=== PATIENT | female | born 1990 | race Caucasian/White ===

== ENCOUNTER 2017-09-29 15:55 | Inpatient (IN) ==
[2017-09-29] MEDS ORDERED: MAG-AL + SIM ORAL LIQUID 30ml PO PRN (16:18)
[2017-09-29] MEDS ORDERED: LR 1,000 ML IV PRN (16:18)
[2017-09-29] MEDS ORDERED: SALINE FLUSH 10ml SYRINGE IV PRN (16:18)
[2017-09-29] MEDS ORDERED: CALCIUM CARBONATE Chewable 500mg TABLET PO PRN (16:18)
[2017-09-29] MEDS ORDERED: LIDOCAINE 1% (10mg/ml) 2mL INJ PF SDV ID PRN (16:18)
[2017-09-29] MEDS ORDERED: ACETAMINOPHEN 500 MG TABLET PO PRN (16:18)
[2017-09-29] MEDS ORDERED: ZOLPIDEM 5 MG TABLET PO PRN (16:18)
[2017-09-29] MEDS ORDERED: METHYLERGONOVINE 0.2 MG/ML INJECTION IM PRN (16:18)
[2017-09-29] MEDS ORDERED: CARBOPROST 250 MCG/ML INJECTION IM PRN (16:18)
[2017-09-29 17:50] VITALS: BMI 45.7
[2017-09-29] MEDS: HYDROCODONE/APAP 5mg/325mg TABLET PO PRN ×2 (21:18→22:47)
[2017-09-30] MEDS ORDERED: OXYTOCIN DRIP 30 UNIT/500 ML ML IV PRN (05:00)
[2017-09-30] MEDS: D5LR 1,000 ML IV PRN ×2 (05:00→15:00)
[2017-09-30] MEDS ORDERED: BUTORPHANOL 2 MG/ML INJECTION IVP PRN (10:53)
[2017-09-30] MEDS ORDERED: ROPIVACAINE 1% 10MG/ML INJ 200 MG, SUFentanil 50 MCG in NS 100 ML EPI PRN (14:34)
[2017-09-30] MEDS ORDERED: ONDANSETRON 4 MG/2 ML INJECTION IVP PRN (14:34)
[2017-09-30] MEDS ORDERED: DiphenhydrAMINE 50 MG/ML INJECTION IVP PRN (14:34)
[2017-09-30] MEDS ORDERED: NALOXONE 0.4 MG/ML INJECTION IVP PRN (14:34)
--- NOTE | 2017-09-30 14:34 | Anesthesia Preoperative Report ---
Anesthesia Epidural/Spinal Rec - Date and Time Date: 09/30/17 Procedure: Labor Epidural Plan: Epidural - Vital Signs /Para: P:0 - Medictaions & Allergies Inpatient Medications: Current Medications Acetaminophen (Tylenol) 500 - 1,000 mg PO Q4H PRN PRN Reason: Pain Hydrocodone Bitart/Acetaminophen ([place] 5/325) 1 - 2 tab PO Q4H PRN PRN Reason: Pain Last Admin: 09/29/17 22:47 Dose: 1 tab Al Hydroxide/Mg Hydroxide (Maalox Plus) 30 ml PO Q3H PRN PRN Reason: Indigestion Butorphanol Tartrate (Stadol Inj) 1 mg IVP Q1-2HR PRN Last Admin: 09/30/17 10:58 Dose: 1 mg Calcium Carbonate (Tums) 500 - 1,000 mg PO Q2H PRN PRN Reason: Indigestion Carboprost Tromethamine (Hemabate) 250 mcg IM O PRN PRN Reason: .Downtime Lactated Ringer's (Lactated Ringers) 1,000 mls @ 999 mls/hr IV .Q1H1M PRN Last Admin: 09/30/17 05:00 Dose: 999 mls/hr Dextrose/Lactated Ringer's (Dextrose 5%-Lactated Ringers) 1,000 mls @ 125 mls/ hr IV .Q8H PRN PRN Reason: Labor Last Admin: 09/30/17 05:00 Dose: 125 mls/hr Oxytocin (Pitocin Drip) 30 unit in 500 mls @ 2 mls/hr IV .Q24H PRN; Protocol PRN Reason: Induction/Augmentation Last Admin: 09/30/17 05:00 Dose: 2 mls/hr Lidocaine HCl (Xylocaine-Mpf 1% Vial) 0.2 mg ID O PRN PRN Reason: IV Start Methylergonovine Maleate (Methergine) 0.2 mg IM O PRN Misoprostol (Cytotec) 800 mcg [place] ONCE PRN Sodium Chloride (Iv Flush) 10 - 80 ml IV PRN PRN PRN Reason: Flushing Zolpidem Tartrate (Ambien) 5 mg PO O PRN PRN Reason: Insomnia Last Admin: 09/29/17 22:47 Dose: 5 mg Allergies/Adverse Reactions: Allergies Allergy/AdvReac Type Severity Reaction Status Date / Time No Known Allergies Allergy Verified 09/09/17 18:09 - Home Medications Home Medications: Home Medications Medication Instructions Recorded Confirmed Type Ferrous Sulfate 325 mg PO BID 09/09/17 09/29/17 History Omeprazole 1 PO DAILY 09/09/17 History Vitamins 1 PO DAILY 09/09/17 History - Medical History Respiratory: Reports: Bronchitis (chronic when younger) Gastrointestional: Reports: Gastroesophageal Reflux Disease (takes meds) Neuro/Musculoskeletal: Reports: Depression Other History: Reports: Now - Surgical History HEENT Surgeries: Reports: Tonsillectomy (3rd grade) Anesthesia Reactions: None Hx Family Anesthesia Reaction: No History of Motion Sickness: No - Social History Smoking Status: Former smoker Second Hand Exposure: No Substance Use Type: does not use Alcohol Intake Frequency: does not drink Last drink: just SODA MAKER Hx Chewing Tobacco Use: No - Pertinent Findings Lab Data: CBC and BMP 09/29/17 16:44 09/29/17 16:31 BMP 09/29/17 16:31 Sodium 140 Potassium 4.2 Chloride 109 H Carbon Dioxide 20 L BUN 10.0 Creatinine 0.6 L Glucose 70 Calcium 8.8 Liver Function 09/29/17 Range/Units 16:31 Total Bilirubin 0.60 (0.20-1.30) MG/DL AST 15 (14-36) U/L ALT 10 (1-35) U/L Alkaline Phosphatase 179 H (38-126) U/L Albumin 3.6 (3.5-5.0) g/dL EKG Rhythm: Normal Sinus Rhythm - Physical Exam Respiratory Exam: lungs clear Cardiovascular Exam: regular rate and rhythm, no murmur - Airway Assessment Mallampati Score: II Neck Extension: good Overall Assessment: no airway concerns - ASA ASA Score: 2 - Discussion Discussion: Discussed risks/options/alternatives of anesthesia and questions answered. Patient consents. Nursing pain assessment noted. Anesthesia Discussion: spouse Attestation Statement: Prior to the delivery of any anesthetic medication, I examined the patient, developed the plan, obtained the patient's consent and discussed the risk and benefits of the procedure with the patient/guardian.
[2017-09-30] MEDS ORDERED: CITRIC ACID/SODIUM CITRATE 30ml PO ONE (18:32)
[2017-09-30] MEDS ORDERED: CEFAZOLIN 1 G INJECTION IVP ONE (18:32)
[2017-09-30] MEDS ORDERED: AZITHROMYCIN IV 500 MG in NS 250ml 250 ML IV ONE (18:32)
[2017-09-30] MEDS ORDERED: FAMOTIDINE PB 20 MG/50 ML BAG IV ONE (18:32)
[2017-09-30] MEDS ORDERED: CEFAZOLIN PREMIX (MC ONLY) 2 GM/50 ML BAG IV ONE (18:32)
[2017-09-30] MEDS ORDERED: NOZIN NASAL SWAB NAS ONE ×2 (18:35→18:37)
[2017-09-30] MEDS ORDERED: LIDOCAINE 2%/EPI 1:200,000 20ml SDV PF ONE (18:37)
[2017-09-30] MEDS ORDERED: SODIUM BICARBONATE 8.4% (50mEq/50ml) VIAL IV ONE (18:37)
[2017-09-30] MEDS ORDERED: OXYTOCIN BOLUS BAG 30 UNIT/500 ML ML IV SCH (19:06)
[2017-09-30] MEDS ORDERED: MORPHINE SULFATE PF 5mg/10ml INJ (Duramorph) ONE (19:27)
[2017-09-30] MEDS ORDERED: MEPERIDINE 100 MG/ML INJECTION ONE (19:31)
[2017-09-30] MEDS ORDERED: SALINE FLUSH 10ml SYRINGE ONE (19:31)
[2017-09-30] MEDS ORDERED: NALBUPHINE 10 MG/ML INJECTION IVP PRN (19:37)
[2017-09-30] MEDS ORDERED: NALOXONE 2 MG/2 ML INJECTION PFS IVP PRN (19:37)
[2017-09-30] MEDS ORDERED: METOCLOPRAMIDE 10mg/2ml INJECTION IVP PRN (19:37)
[2017-09-30] MEDS ORDERED: DiphenhydrAMINE 50 MG/ML INJECTION ONE (19:37)
[2017-09-30] MEDS ORDERED: CALCIUM CARBONATE Chewable 500mg TABLET PO PRN (20:24)
[2017-09-30] MEDS ORDERED: DiphenhydrAMINE 25 MG CAPSULE PO PRN (20:24)
[2017-09-30] MEDS ORDERED: D5LR 1,000 ML IV SCH (20:24)
[2017-09-30] MEDS ORDERED: HYDROCORTISONE 2.5% CREAM 30gm RECTALLY PRN (20:24)
[2017-09-30] MEDS ORDERED: OXYTOCIN DRIP 30 UNIT/500 ML ML IV SCH (20:24)
[2017-09-30] MEDS ORDERED: SIMETHICONE 80 MG CHEWABLE TABLET PO PRN (20:24)
[2017-09-30] MEDS ORDERED: ACETAMINOPHEN 500 MG TABLET PO PRN (20:24)
--- NOTE | 2017-09-30 20:30 | Anesthesia Postoperative Note ---
- Date and Time Date: 09/30/17 Time: 20:29 - Status Patient Participated in Evaluation: Patient Participated in Person Vital Signs: Pulse Oximetry 97 09/30/17 18:47 Respiratory Function: Airway Patent, Regular Respirations Cardiovascular Function: Regular Pulse EKG: Sinus Rhythm Mental Status: Alert and Oriented Pain Intensity: 0 (spinal intact) Hydration: IV Infusing Complications During Recover: None Apparent - Follow-Up Instructions Instructions: Per Surgeon
[2017-09-30] MEDS ORDERED: NOZIN NASAL SWAB NAS SCH (22:00)
[2017-09-30] MEDS: MetroNIDAZOLE 500 MG TABLET PO SCH (22:29)
[2017-09-30] MEDS: IBUPROFEN 800 MG TABLET PO PRN (22:30)
[2017-09-30] MEDS: SIMETHICONE 80 MG CHEWABLE TABLET PO SCH (22:32)
--- NOTE | 2017-10-01 08:12 | OB/GYN Progress Note ---
OB-PP Progress Note - General POD:: POD1 - Subjective Date: 10/01/17 Lochia: Moderate Pain: controlled Voiding: benito still in place (clear urine) Nausea or Vomiting Present: No - Objective Vital Signs: Last Vital Signs Temp 98 F 10/01/17 04:45 Pulse 82 10/01/17 04:45 Resp 16 10/01/17 04:45 BP 125/69 10/01/17 04:45 Pulse Ox 98 10/01/17 04:45 Urine Output: good General: alert and oriented Abdomen: fundus firm Incision: dressed (wound vac in place) Extremities: non-tender Laboratory: Laboratory Results - last 24 hr 10/01/17 07:35 WBC 15.2 H RBC 3.95 L Hgb 9.4 L D Hct 30.0 L D MCV 75.9 L MCH 23.8 L MCHC 31.3 RDW Std Deviation 42.4 Plt Count 197 MPV 11.5 - Assessment Assessment: Primary C/S - Plan Plan: routine care
[2017-10-01] MEDS: MetroNIDAZOLE 500 MG TABLET PO SCH ×2 (08:47→15:40)
[2017-10-01] MEDS: DOCUSATE CALCIUM 240 MG CAPSULE PO SCH (08:47)
[2017-10-01] MEDS: SIMETHICONE 80 MG CHEWABLE TABLET PO SCH ×4 (08:48→20:11)
--- NOTE | 2017-10-01 10:20 | Operative Note ---
DATE OF PROCEDURE 09/30/2017 PREOPERATIVE DIAGNOSIS 1. 26-year-old at 39 weeks 5 days gestational age. 2. Arrest of descent. 3. Late decelerations with Pitocin. POSTOPERATIVE DIAGNOSIS 1. 26-year-old at 39 weeks 5 days gestational age. 2. Arrest of descent. 3. Late decelerations with Pitocin. PROCEDURE Primary low transverse section. SURGEON Dr. Dania Brock ROOF BOLTER Dr. Jesusita Walker ANESTHESIA Epidural by Ramon Sanon CRNA COMPLICATIONS None. EBL 800 ml FINDINGS Viable male infant, cephalic OP position, clear fluids, Apgars 8/9, weight 3450 g, name "Isaias." Normal-appearing uterus, tubes and ovaries. INDICATIONS The patient was brought in on the evening of 09/29/2017 for Forbes bulb cervical ripening due to increased edema. The next morning she was started on Pitocin. After her Forbes bulb was expelled, her membranes were ruptured artificially returning clear fluids. She received an epidural. Her Pitocin had to be turned down and then off due to late decelerations at one point in time. An IUPC was placed to help titrate Pitocin. She started having late decelerations again with only 6 milliunits of Pitocin. Her cervix was still only 3.5 cm and - 2 station. Since she was remote from vaginal delivery and having late decelerations with Pitocin, she was consented for a . DESCRIPTION OF PROCEDURE The patient was taken to the operating room where her epidural was brought up to adequate surgical levels. She already had a Forbes catheter in place. A Pfannenstiel skin incision was made just a little bit above her pannus to stay out of that crease. This was carried down to the fascia. The fascia was incised in the midline and extended laterally with a Macias scissors. The fascia was elevated and the underlying rectus muscles were dissected off. The peritoneum was entered bluntly and extended superiorly and inferiorly with good visualization of the bladder. The bladder blade was inserted. A bladder flap was created sharply and the bladder blade was reinserted. The lower uterine segment was incised in a transverse fashion layer by layer with a scalpel and bluntly extended. The infant's head was delivered atraumatically. The nose and mouth were suctioned. A nuchal cord x 1 was reduced. The infant was handed to Dr. Cain who was asked to attend due to the late decelerations. The placenta delivered spontaneously. The uterus was exteriorized and cleared of all clots and debris. The uterine incision was closed with running-locked O Monocryl. A [id number] was placed for hemostasis as well as using the cautery. The uterus was returned to the abdomen. The gutters were cleared of all clots and debris. The uterine incision was inspected one final time and still noted to be hemostatic. The peritoneum was closed with running 2-0 Vicryl. Hemostasis was obtained in the rectus muscles with the cautery. The fascia was closed with running 0 Vicryl. Hemostasis was obtained in subcutaneous tissue with the cautery. Miller's fascia was closed with running 2-0 chromic. The skin was closed with 4-0 Vicryl in a subcuticular manner. A Prevena wound vac was placed. Sponge, sharp and instrument counts were correct. The patient tolerated the procedure well and was taken to the recovery room in good condition. CORBIN
[2017-10-01] MEDS: HYDROCODONE/APAP 5mg/325mg TABLET PO PRN ×4 (11:09→21:59)
[2017-10-01] MEDS: IBUPROFEN 800 MG TABLET PO PRN (15:40)
[2017-10-02] MEDS: HYDROCODONE/APAP 5mg/325mg TABLET PO PRN ×5 (00:29→15:59)
[2017-10-02] MEDS: MetroNIDAZOLE 500 MG TABLET PO SCH ×2 (00:29→08:50)
[2017-10-02] MEDS: IBUPROFEN 800 MG TABLET PO PRN ×3 (00:29→15:58)
--- NOTE | 2017-10-02 08:31 | OB/GYN Progress Note ---
<Donita Barth - Last Filed: 10/02/17 08:27> OB-PP Progress Note - General PPD2 POD:: POD2 Maternal Group B Strep: Negative Maternal blood type: O+ Maternal Rubella Status: Immune - Subjective Date: 10/02/17 Lochia: Moderate Pain: controlled Voiding: voiding Nausea or Vomiting Present: No - Objective Vital Signs: Last Vital Signs Temp 97.8 F 10/02/17 04:00 Pulse 80 10/02/17 04:00 Resp 18 10/02/17 04:00 BP 141/98 H 10/02/17 04:00 Pulse Ox 98 10/02/17 04:00 General: alert and oriented Respiratory: non-labored Abdomen: fundus firm Incision: dressed Extremities: non-tender Side: bilateral Site: ankle Edema Degree: 1+ - Assessment (1) Status post section Status: Acute - Plan Plan: routine care, discharge home Expected date of discharge: 10/02/17 BP slightly elevated this morning. Per nurse, pt was having pain at the time. Nurse notifed to contact Dr Brock if BP's continue to be elevated before pt is discharged. <Dania Brock - Last Filed: 10/02/17 10:48> OB-PP Progress Note - Subjective Date: 10/02/17 - Objective Vital Signs: Last Vital Signs Temp 98.0 F 10/02/17 08:00 Pulse 81 10/02/17 08:00 Resp 16 10/02/17 08:00 BP 142/95 H 10/02/17 08:00 Pulse Ox 96 10/02/17 08:00 - Assessment (1) Status post section Status: Acute - Plan Patient seen and agree with above.
[2017-10-02] MEDS: SIMETHICONE 80 MG CHEWABLE TABLET PO SCH ×3 (08:45→15:58)
[2017-10-02] MEDS: DOCUSATE CALCIUM 240 MG CAPSULE PO SCH (08:45)
[2017-10-02 08:59] VITALS: O2SAT 96
[2017-10-02 12:19] VITALS: BP 135/84; PULSE 89; RESP 20; TEMP 97.9
== END 2017-10-02 16:20 | disposition home or self-care (01) | DRG 765 ==
LOC: MC 15:55
PROVIDERS: ADMIT Obstetrics & Gynecology; ATTEND Obstetrics & Gynecology